=== PATIENT | male | born 1935 | race Caucasian/White ===

== ENCOUNTER 2017-11-20 15:06 | Inpatient (IN) | payer MEDICARE ==
[~2017-11-20] VITALS: Ht 175.3 cm; Wt 75.2 kg
[2017-11-20] VITALS (19 sets, daily range): BP systolic 87–125; BP diastolic 48–87
--- NOTE | ~2017-11-20 | OP ---
PATIENT NAME: HAYDER SMITH MEDICAL RECORD: [id number] :33 LOCATION:D.[id number] ADMISSION DATE:11/20/17 SURGEON: CISCO LAWRENCE MD DATE OF OPERATION: 11/20/2017 SURGEON: Cisco Lawrence MD CO-SURGEON: Harpreet Salazar MD REPORTER ANCHOR: MELE Rob OPERATIONS PERFORMED: 1. Emergent endovascular repair of abdominal aortic aneurysm, ruptured, with [employer] Endurant main body and bilateral iliac extensions via bilateral femoral cutdowns. 2. Aortogram times 4. 3. Bilateral iliac angioplasty. PREOPERATIVE DIAGNOSIS: Ruptured abdominal aortic aneurysm. POSTOPERATIVE DIAGNOSIS: Ruptured abdominal aortic aneurysm. ANESTHESIA: General endotracheal anesthesia. ESTIMATED BLOOD LOSS: 50 cc with Cell Saver. COMPLICATIONS: None. SPECIMENS: None. CONDITION: Critical. DISPOSITION: CV ICU. OPERATIVE FINDINGS: 1. Both femoral arteries were relatively free of disease and normal in size. 2. Pigtail via the left femoral to delineate anatomy. Eventually, some flow was seen in the right ureter, but the right renal artery was never clearly visualized, possibly right kidney only fed by accessory renals. The left renal was the lowest on the CT scan and a landmark for placement of endovascular aortic device. 3. Main body via the right femoral approach. Contralateral gate cannulated from the left with deployment of iliac extension and then an extension placed on the right. 4. Final arteriogram with no endoleak and good positioning of the graft despite severe neck angulation seen. 5. Primary repair of both femoral arteries. INDICATION: Ruptured abdominal aortic aneurysm. DESCRIPTION OF PROCEDURE: The patient was brought emergently to the operating suite. General anesthesia obtained. The patient was prepped and draped. Simultaneously, bilateral femoral cutdowns were performed. Femoral artery was exposed and encircled with vessel loops. A 5000 units of heparin was given. Left femoral artery was cannulated. Guidewire was passed. Sheath was enlarged OPERATIVE REPORT [id number] HAYDER SMITH to 5-Georgian. Pigtail catheter was placed over a wire, which had been placed into the aorta using a guiding catheter; and after the arteriogram, the right femoral was cannulated, sized up to 8-Georgian. Guide catheter was used to place a wire. Then, using the guide catheter in the aorta, a stiff wire was placed. Stiff wire was also placed on the left and the main body placed from the right side deployed. Contralateral gate cannulated from the left and extension deployed. Extension was then deployed on the right. Final angiogram performed after exchange for sheaths and aspirating the outflow through both sheaths. A total of 10,000 of heparin was given as additional 5000 was given prior to deploying the main body. Both femoral arteries were briefly clamped to allow repair of the artery, and after return of flow, good Doppler signal was noted. A 50 mg of protamine was given. Thorough irrigation was undertaken. Both groins were closed in 2 layers with skin clips, and after the case, Doppler posterior tibial pulses were identified. TRANSINT:[id number] Voice Confirmation ID: [id number] DOCUMENT ID: [id number] CISCO LAWRENCE MD at 0716 CC: THIAGO MONROE [id number] DICTATION DATE: 11/20/17 2159 PLASMA TABLE OPERATOR: 11/21/17 0034 ADM IN [facility] [address] [place] [address]
[2017-11-20] MEDS ORDERED: BAYER CHEWABLE81 MG PO (15:18)
[2017-11-20] MEDS ORDERED: HYDROCHLOROTHIA25 MG PO (15:18)
[2017-11-20] MEDS ORDERED: PEPCID40 MG PO (15:19)
[2017-11-20] MEDS ORDERED: ZOCOR20 MG PO (15:19)
[2017-11-20] MEDS ORDERED: FLOMAX0.4 MG PO (15:20)
[2017-11-20] MEDS ORDERED: OMEPRAZOLE20 M1 PO (15:20)
[2017-11-20] MEDS ORDERED: PROBIOTIC1 EAC1 PO (15:20)
[2017-11-20] MEDS ORDERED: SAW PALMETTO450 MG PO (15:21)
[2017-11-20] MEDS ORDERED: OMEGA-3100 MG PO (15:21)
[2017-11-20] MEDS ORDERED: VITAMIN D5000 UNIT PO (15:21)
[2017-11-20] MEDS ORDERED: MIRALAX17 GM PO (15:21)
[2017-11-20] MEDS ORDERED: CEREFOLIN TAB1 TAB PO (15:21)
[2017-11-20] MEDS ORDERED: VITAMIN E400 UNI2 PO (15:21)
[2017-11-20] MEDS ORDERED: POTASSIUM99 M1 PO (15:22)
[2017-11-20] MEDS ORDERED: SYSTANE NIGHTT3.5 GM EACH EYE (15:22)
[2017-11-20] MEDS ORDERED: PRED FORTE5 ML RIGHT EYE (15:22)
[2017-11-20] MEDS ORDERED: MURO-128 OPTH3.5 GM EACH EYE (15:23)
[2017-11-20 15:57] LABS: BASOPHILS 0.1 % (0-2); EOSINOPHILS 0 % (0-7); HEMATOCRIT 34.1 % (42.0-54.0); IMMATURE GRANULOCYTES 0.3 % (0-5); LYMPHOCYTES 4.7 % (15-50); MCH 33.4 pg (26.0-34.0); MCHC 35.2 g/dL (31.0-37.0); MONOCYTES 6.8 % (2-11); NEUTROPHILS 88.1 % (40-80); RBC 3.59 10x6/uL (4.20-6.10); RDW 12.2 % (11.5-14.5); WBC 18.2 10x3/uL (4.8-10.8)
[2017-11-20 16:02] LABS: PLATELET COUNT 206 10x3/uL (130-400)
[2017-11-20 16:17] LABS: ALBUMIN 3.2 g/dL (3.4-5.0); BILIRUBIN - TOTAL 0.5 mg/dL (0.2-1.3); CALCIUM 8.9 mg/dL (8.5-10.1); CARBON DIOXIDE 21.8 mmol/L (21.0-32.0); CREATININE - SERUM 2.6 mg/dL (0.6-1.3); POTASSIUM - SERUM 4.8 mmol/L (3.5-5.1); PROTEIN - SERUM 7.1 g/dL (6.4-8.2)
[2017-11-20 16:56] LABS: INR 1.05 (0.85-1.17); PROTIME 13.3 SECONDS (11.6-15.0)
[2017-11-20 17:00] LABS: CKMB 1.5 U/L (0.0-3.6); CREATINE KINASE 63 UL (21-232); PRO BNP 156 pg/mL (0-450); THYROID STIMULATING HORMONE 1.26 uIU/mL (0.36-3.74)
[2017-11-20 17:01] LABS: TROPONIN-I < 0.017 ng/mL (0.000-0.060)
[2017-11-20 23:32] LABS: HEMATOCRIT 27.5 % (42.0-54.0); HEMOGLOBIN 9.9 g/dL (13.5-17.5); MCV 91.7 fL (80.0-100.0); MEAN PLATELET VOLUME 9.8 fL (7.4-10.4); RDW 12.9 % (11.5-14.5); WBC 13.8 10x3/uL (4.8-10.8)
[2017-11-20 23:42] LABS: ANION GAP 11.8 mmol/L (8-16); CALCIUM 7.2 mg/dL (8.5-10.1); CREATININE - SERUM 2.2 mg/dL (0.6-1.3); POTASSIUM - SERUM 4.3 mmol/L (3.5-5.1)
[2017-11-20 23:43] LABS: CARBON DIOXIDE 27.5 mmol/L (21.0-32.0)
[2017-11-21] VITALS (57 sets, daily range): BP systolic 102–144; BP diastolic 48–72; Ht 175.3 cm; Wt 75.2 kg
[2017-11-21 06:33] LABS: BILIRUBIN - TOTAL 0.4 mg/dL (0.2-1.3); CALCIUM 7.1 mg/dL (8.5-10.1)
[2017-11-21 06:53] LABS: ALBUMIN 2.3 g/dL (3.4-5.0); PROTEIN - SERUM 4.9 g/dL (6.4-8.2)
[2017-11-21 14:56] LABS: APPEARANCE CLEAR (CLEAR); BILIRUBIN NEGATIVE (NEGATIVE); COLOR YELLOW (YELLOW); GLUCOSE NEGATIVE (NEGATIVE); KETONE NEGATIVE (NEGATIVE); NITRITE NEGATIVE (NEGATIVE); PROTEIN NEGATIVE (NEGATIVE); UROBILINOGEN NORMAL (NORMAL)
[2017-11-21 14:59] LABS: BACTERIA FEW /hpf (NONE SEEN); EPITHELIAL CELLS 0-5 /hpf (0-5)
[2017-11-22] VITALS (71 sets, daily range): BP systolic 94–157; BP diastolic 41–84
[2017-11-22 06:43] LABS: ALBUMIN 2.4 g/dL (3.4-5.0); ANION GAP 10.1 mmol/L (8-16); BILIRUBIN - TOTAL 0.48 mg/dL (0.2-1.3); CALCIUM 7.3 mg/dL (8.5-10.1); CARBON DIOXIDE 26.7 mmol/L (21.0-32.0); POTASSIUM - SERUM 3.8 mmol/L (3.5-5.1); PROTEIN - SERUM 5.7 g/dL (6.4-8.2)
[2017-11-22 06:44] LABS: CREATININE - SERUM 1.3 mg/dL (0.6-1.3)
[2017-11-23] VITALS (30 sets, daily range): BP systolic 105–153; BP diastolic 44–68
[2017-11-23 06:15] LABS: BASOPHILS 0.2 % (0-2); EOSINOPHILS 0.3 % (0-7); HEMOGLOBIN 8.3 g/dL (13.5-17.5); IMMATURE GRANULOCYTES 0.2 % (0-5); MCH 31.9 pg (26.0-34.0); MCHC 33.2 g/dL (31.0-37.0); MCV 96.2 fL (80.0-100.0); MEAN PLATELET VOLUME 10.1 fL (7.4-10.4); MONOCYTES 11.7 % (2-11); NEUTROPHILS 80.6 % (40-80); PLATELET COUNT 117 10x3/uL (130-400); RDW 13.1 % (11.5-14.5); WBC 12.3 10x3/uL (4.8-10.8)
[2017-11-23 06:42] LABS: ALBUMIN 2.2 g/dL (3.4-5.0); ANION GAP 8.2 mmol/L (8-16); BILIRUBIN - TOTAL 0.54 mg/dL (0.2-1.3); CALCIUM 7.5 mg/dL (8.5-10.1); CARBON DIOXIDE 27.9 mmol/L (21.0-32.0); CREATININE - SERUM 1.1 mg/dL (0.6-1.3); POTASSIUM - SERUM 4.1 mmol/L (3.5-5.1); PROTEIN - SERUM 5.7 g/dL (6.4-8.2)
[2017-11-24] VITALS (23 sets, daily range): BP systolic 116–146; BP diastolic 45–77
[2017-11-24 06:56] LABS: BASOPHILS 0.1 % (0-2); EOSINOPHILS 0.8 % (0-7); HEMATOCRIT 23.5 % (42.0-54.0); HEMOGLOBIN 7.9 g/dL (13.5-17.5); IMMATURE GRANULOCYTES 0.2 % (0-5); LYMPHOCYTES 6.4 % (15-50); MCH 32.5 pg (26.0-34.0); MCHC 33.6 g/dL (31.0-37.0); MCV 96.7 fL (80.0-100.0); MEAN PLATELET VOLUME 9.6 fL (7.4-10.4); MONOCYTES 15.3 % (2-11); NEUTROPHILS 77.2 % (40-80); RBC 2.43 10x6/uL (4.20-6.10); RDW 12.9 % (11.5-14.5); WBC 11.8 10x3/uL (4.8-10.8)
[2017-11-24 06:58] LABS: PLATELET COUNT 151 10x3/uL (130-400)
[2017-11-25] VITALS (24 sets, daily range): BP systolic 110–135; BP diastolic 48–70
[2017-11-25 06:02] LABS: BASOPHILS 0.1 % (0-2); EOSINOPHILS 0.6 % (0-7); HEMOGLOBIN 7.7 g/dL (13.5-17.5); IMMATURE GRANULOCYTES 0.2 % (0-5); LYMPHOCYTES 8.6 % (15-50); MCH 32.4 pg (26.0-34.0); MCHC 33.5 g/dL (31.0-37.0); MCV 96.6 fL (80.0-100.0); MEAN PLATELET VOLUME 9.5 fL (7.4-10.4); MONOCYTES 16.3 % (2-11); NEUTROPHILS 74.2 % (40-80); RBC 2.38 10x6/uL (4.20-6.10); RDW 12.9 % (11.5-14.5); WBC 11.1 10x3/uL (4.8-10.8)
[2017-11-25 06:25] LABS: PLATELET COUNT 189 10x3/uL (130-400)
[2017-11-26] VITALS (24 sets, daily range): BP systolic 101–144; BP diastolic 41–86
[2017-11-26 05:46] LABS: BASOPHILS 0.1 % (0-2); EOSINOPHILS 0.9 % (0-7); HEMATOCRIT 22.3 % (42.0-54.0); IMMATURE GRANULOCYTES 0.5 % (0-5); LYMPHOCYTES 9.4 % (15-50); MCH 32.3 pg (26.0-34.0); MCHC 33.6 g/dL (31.0-37.0); MCV 96.1 fL (80.0-100.0); MEAN PLATELET VOLUME 9.8 fL (7.4-10.4); MONOCYTES 14.5 % (2-11); NEUTROPHILS 74.6 % (40-80); PLATELET COUNT 208 10x3/uL (130-400); RBC 2.32 10x6/uL (4.20-6.10); WBC 10.6 10x3/uL (4.8-10.8)
[2017-11-26 06:12] LABS: HEMOGLOBIN 7.5 g/dL (13.5-17.5)
[2017-11-26 07:14] LABS: ALBUMIN 1.7 g/dL (3.4-5.0); ALKALINE PHOSPHATASE 89 U/L (46-116); ALT (SGPT) 37 U/L (10-68); BILIRUBIN - TOTAL 5.46 mg/dL (0.2-1.3); CALC OSMOLALITY 282 mosm/kg (275-300); CALCIUM 7.4 mg/dL (8.5-10.1); CARBON DIOXIDE 27.8 mmol/L (21.0-32.0); CHLORIDE - SERUM 108 mmol/L (98-107); GLUCOSE 122 mg/dL (74-106); POTASSIUM - SERUM 4.3 mmol/L (3.5-5.1); PROTEIN - SERUM 4.7 g/dL (6.4-8.2); SODIUM 140 mmol/L (136-145); UREA NITROGEN 21 mg/dL (7-18); eGFR NON AFRICAN AMERICAN 76 mL/min (90-120)
[2017-11-26 15:56] LABS: BILIRUBIN - DIRECT 5.66 mg/dL (0.00-0.30); LDH 253 U/L (85-227)
[2017-11-27] VITALS (24 sets, daily range): BP systolic 104–130; BP diastolic 34–63
[2017-11-27 05:10] LABS: BASOPHILS 0.2 % (0-2); EOSINOPHILS 1.1 % (0-7); HEMATOCRIT 22.5 % (42.0-54.0); HEMOGLOBIN 7.6 g/dL (13.5-17.5); IMMATURE GRANULOCYTES 0.4 % (0-5); MCH 32.1 pg (26.0-34.0); MCHC 33.8 g/dL (31.0-37.0); MCV 94.9 fL (80.0-100.0); MEAN PLATELET VOLUME 9.7 fL (7.4-10.4); MONOCYTES 11.6 % (2-11); NEUTROPHILS 76.7 % (40-80); PLATELET COUNT 239 10x3/uL (130-400); RBC 2.37 10x6/uL (4.20-6.10); RDW 13.2 % (11.5-14.5); WBC 10.2 10x3/uL (4.8-10.8)
[2017-11-27 06:11] LABS: ALBUMIN 1.6 g/dL (3.4-5.0); ALKALINE PHOSPHATASE 98 U/L (46-116); BILIRUBIN - TOTAL 7.47 mg/dL (0.2-1.3); CALC OSMOLALITY 282 mosm/kg (275-300); CALCIUM 7.9 mg/dL (8.5-10.1); CHLORIDE - SERUM 107 mmol/L (98-107); GLUCOSE 122 mg/dL (74-106); POTASSIUM - SERUM 4.1 mmol/L (3.5-5.1); PROTEIN - SERUM 5.5 g/dL (6.4-8.2); SODIUM 140 mmol/L (136-145); UREA NITROGEN 20 mg/dL (7-18); eGFR NON AFRICAN AMERICAN 76 mL/min (90-120)
[2017-11-27 06:15] LABS: ALT (SGPT) 69 U/L (10-68)
[2017-11-28] VITALS (23 sets, daily range): BP systolic 97–132; BP diastolic 42–70
[2017-11-28 05:44] LABS: ALBUMIN 1.7 g/dL (3.4-5.0); ANION GAP 8.8 mmol/L (8-16); BILIRUBIN - TOTAL 7.25 mg/dL (0.2-1.3); CARBON DIOXIDE 29.8 mmol/L (21.0-32.0); CREATININE - SERUM 1.1 mg/dL (0.6-1.3); POTASSIUM - SERUM 3.6 mmol/L (3.5-5.1); PROTEIN - SERUM 5.5 g/dL (6.4-8.2)
[2017-11-29] VITALS (24 sets, daily range): BP systolic 101–126; BP diastolic 42–62
[2017-11-29 06:39] LABS: ALBUMIN 1.7 g/dL (3.4-5.0); ALKALINE PHOSPHATASE 113 U/L (46-116); ALT (SGPT) 62 U/L (10-68); BILIRUBIN - TOTAL 6.91 mg/dL (0.2-1.3); CALC OSMOLALITY 281 mosm/kg (275-300); CALCIUM 7.4 mg/dL (8.5-10.1); CARBON DIOXIDE 31.6 mmol/L (21.0-32.0); CHLORIDE - SERUM 104 mmol/L (98-107); GLUCOSE 129 mg/dL (74-106); PHOSPHOROUS 3.1 mg/dL (2.5-4.9); PROTEIN - SERUM 4.9 g/dL (6.4-8.2); SODIUM 138 mmol/L (136-145); UREA NITROGEN 24 mg/dL (7-18); eGFR NON AFRICAN AMERICAN 76 mL/min (90-120)
[2017-11-29 06:40] LABS: POTASSIUM - SERUM 4.2 mmol/L (3.5-5.1)
[2017-11-30] VITALS (24 sets, daily range): BP systolic 98–136; BP diastolic 43–64
[2017-11-30 06:12] LABS: BASOPHILS 0.1 % (0-2); EOSINOPHILS 0.8 % (0-7); HEMATOCRIT 21.8 % (42.0-54.0); IMMATURE GRANULOCYTES 0.8 % (0-5); LYMPHOCYTES 8.6 % (15-50); MCH 31.4 pg (26.0-34.0); MCV 95.2 fL (80.0-100.0); MONOCYTES 11.4 % (2-11); NEUTROPHILS 78.3 % (40-80); RBC 2.29 10x6/uL (4.20-6.10); RDW 14.1 % (11.5-14.5); WBC 12.3 10x3/uL (4.8-10.8)
[2017-11-30 06:18] LABS: HEMOGLOBIN 7.2 g/dL (13.5-17.5); PLATELET COUNT 296 10x3/uL (130-400)
[2017-11-30 06:35] LABS: ALBUMIN 1.5 g/dL (3.4-5.0); ALKALINE PHOSPHATASE 97 U/L (46-116); BILIRUBIN - DIRECT 2.44 mg/dL (0.00-0.30); BILIRUBIN - INDIRECT 2.33 mg/dL (0.00-1.00); BILIRUBIN - TOTAL 4.77 mg/dL (0.2-1.3); CALC OSMOLALITY 269 mosm/kg (275-300); CALCIUM 7.7 mg/dL (8.5-10.1); CHLORIDE - SERUM 105 mmol/L (98-107); CREATININE - SERUM 0.9 mg/dL (0.6-1.3); GLUCOSE 119 mg/dL (74-106); PROTEIN - SERUM 5.4 g/dL (6.4-8.2); SODIUM 133 mmol/L (136-145); UREA NITROGEN 20 mg/dL (7-18); eGFR NON AFRICAN AMERICAN 85 mL/min (90-120)
[2017-11-30 06:37] LABS: ALT (SGPT) 43 U/L (10-68); CARBON DIOXIDE 20.3 mmol/L (21.0-32.0)
[2017-12-01] VITALS (23 sets, daily range): BP systolic 110–139; BP diastolic 46–68
[2017-12-01 07:01] LABS: ALBUMIN 1.6 g/dL (3.4-5.0); ALKALINE PHOSPHATASE 103 U/L (46-116); ALT (SGPT) 39 U/L (10-68); BILIRUBIN - TOTAL 4.16 mg/dL (0.2-1.3); CALC OSMOLALITY 269 mosm/kg (275-300); CALCIUM 7.6 mg/dL (8.5-10.1); CHLORIDE - SERUM 103 mmol/L (98-107); CREATININE - SERUM 0.9 mg/dL (0.6-1.3); GLUCOSE 130 mg/dL (74-106); POTASSIUM - SERUM 4.3 mmol/L (3.5-5.1); PROTEIN - SERUM 5.4 g/dL (6.4-8.2); SODIUM 133 mmol/L (136-145); UREA NITROGEN 19 mg/dL (7-18); eGFR NON AFRICAN AMERICAN 85 mL/min (90-120)
[2017-12-01 07:04] LABS: BASOPHILS 0.2 % (0-2); HEMATOCRIT 21.6 % (42.0-54.0); IMMATURE GRANULOCYTES 0.8 % (0-5); LYMPHOCYTES 8.6 % (15-50); MCH 31.1 pg (26.0-34.0); MCHC 32.4 g/dL (31.0-37.0); MEAN PLATELET VOLUME 10.3 fL (7.4-10.4); MONOCYTES 9.8 % (2-11); NEUTROPHILS 79.6 % (40-80); PLATELET COUNT 293 10x3/uL (130-400); RBC 2.25 10x6/uL (4.20-6.10); RDW 14.3 % (11.5-14.5); WBC 11.8 10x3/uL (4.8-10.8)
[2017-12-01 07:06] LABS: CARBON DIOXIDE 26.1 mmol/L (21.0-32.0)
[2017-12-01 07:31] LABS: BILIRUBIN - DIRECT 2.86 mg/dL (0.00-0.30)
[2017-12-02] VITALS (24 sets, daily range): BP systolic 96–129; BP diastolic 49–84
[2017-12-02 06:21] LABS: BASOPHILS 0.2 % (0-2); HEMATOCRIT 23.6 % (42.0-54.0); HEMOGLOBIN 7.7 g/dL (13.5-17.5); IMMATURE GRANULOCYTES 0.8 % (0-5); LYMPHOCYTES 10.7 % (15-50); MCH 31.6 pg (26.0-34.0); MCHC 32.6 g/dL (31.0-37.0); MCV 96.7 fL (80.0-100.0); MONOCYTES 10.3 % (2-11); PLATELET COUNT 295 10x3/uL (130-400); RBC 2.44 10x6/uL (4.20-6.10); RDW 14.5 % (11.5-14.5); WBC 9.6 10x3/uL (4.8-10.8)
[2017-12-02 06:38] LABS: ALBUMIN 1.7 g/dL (3.4-5.0); ALKALINE PHOSPHATASE 112 U/L (46-116); ALT (SGPT) 45 U/L (10-68); BILIRUBIN - TOTAL 4.07 mg/dL (0.2-1.3); CALC OSMOLALITY 273 mosm/kg (275-300); CALCIUM 7.9 mg/dL (8.5-10.1); CARBON DIOXIDE 26.1 mmol/L (21.0-32.0); CHLORIDE - SERUM 103 mmol/L (98-107); GLUCOSE 105 mg/dL (74-106); POTASSIUM - SERUM 3.9 mmol/L (3.5-5.1); PROTEIN - SERUM 5.7 g/dL (6.4-8.2); SODIUM 136 mmol/L (136-145); UREA NITROGEN 19 mg/dL (7-18); eGFR NON AFRICAN AMERICAN 76 mL/min (90-120)
[2017-12-03] VITALS (18 sets, daily range): BP systolic 109–134; BP diastolic 48–69
[2017-12-03 06:47] LABS: BASOPHILS 0.1 % (0-2); HEMATOCRIT 23.3 % (42.0-54.0); HEMOGLOBIN 7.7 g/dL (13.5-17.5); LYMPHOCYTES 10.7 % (15-50); MCH 32.1 pg (26.0-34.0); MCV 97.1 fL (80.0-100.0); MEAN PLATELET VOLUME 9.9 fL (7.4-10.4); MONOCYTES 11.3 % (2-11); NEUTROPHILS 75.9 % (40-80); PLATELET COUNT 313 10x3/uL (130-400); RDW 14.7 % (11.5-14.5); WBC 8.8 10x3/uL (4.8-10.8)
[2017-12-03 07:05] LABS: ALBUMIN 1.7 g/dL (3.4-5.0); ALKALINE PHOSPHATASE 142 U/L (46-116); BILIRUBIN - DIRECT 1.92 mg/dL (0.00-0.30); BILIRUBIN - TOTAL 2.92 mg/dL (0.2-1.3); CALC OSMOLALITY 273 mosm/kg (275-300); CALCIUM 7.7 mg/dL (8.5-10.1); CHLORIDE - SERUM 105 mmol/L (98-107); GLUCOSE 110 mg/dL (74-106); PROTEIN - SERUM 5.7 g/dL (6.4-8.2); SODIUM 136 mmol/L (136-145); UREA NITROGEN 15 mg/dL (7-18); eGFR NON AFRICAN AMERICAN 76 mL/min (90-120)
[2017-12-03 07:10] LABS: ALT (SGPT) 58 U/L (10-68)
[2017-12-04] VITALS (11 sets, daily range): BP systolic 108–126; BP diastolic 45–69
[2017-12-04] MEDS ORDERED: HEMOCYTE PLUS C1 CAP PO (10:27)
[2017-12-04] MEDS ORDERED: LOPRESSOR25 MG PO (10:28)
[2017-12-04] MEDS ORDERED: COLACE100 MG PO (10:29)
[2017-12-04] MEDS ORDERED: CARAFATE1 G/10 ML PO (10:32)
== END 2017-12-04 12:32 | disposition home or self-care (01) | DRG 268 ==
LOC: D.ER 15:06 → D.CVICU 17:33 → D.EDHOLD 17:33 → D.CVICU 22:19
PROVIDERS: Emergency Medicine; Family Medicine; Internal Medicine Gastroenterology; Thoracic Surgery (Cardiothoracic Vascular Surgery)
PROC: 047D3ZZ Dilation of Left Common Iliac Artery, Percutaneous Approach (ICD-10-PCS; 2017-11-20)
PROC: 047C3ZZ Dilation of Right Common Iliac Artery, Percutaneous Approach (ICD-10-PCS; 2017-11-20)
PROC: 04V03EZ Restriction of Abdominal Aorta with Branched or Fenestrated Intraluminal Device, One or Two Arteries, Percutaneous Approach (ICD-10-PCS; principal; 2017-11-20 18:15)
DX: I71.3 Abdominal aortic aneurysm, ruptured (principal); K66.1 Hemoperitoneum; K56.7 Ileus, unspecified; I10 Essential (primary) hypertension; K21.9 Gastro-esophageal reflux disease without esophagitis; I95.9 Hypotension, unspecified; R63.2 Polyphagia

== ENCOUNTER → 2017-12-19 08:05 | Outpatient (CLI) | payer MEDICARE ==
[2017-11-21 09:35] VITALS: BMI 27.2
[~2017-12-19 08:05] MED LIST: BAYER CHEWABLE81 MG PO; CARAFATE1 G/10 ML PO; CEREFOLIN TAB1 TAB PO; COLACE100 MG PO; FLOMAX0.4 MG PO; HEMOCYTE PLUS C1 CAP PO; HYDROCHLOROTHIA25 MG PO; LOPRESSOR25 MG PO; MIRALAX17 GM PO; MURO-128 OPTH3.5 GM EACH EYE; OMEGA-3100 MG PO; OMEPRAZOLE20 M1 PO; PEPCID40 MG PO; POTASSIUM99 M1 PO; PRED FORTE5 ML RIGHT EYE; PROBIOTIC1 EAC1 PO; SAW PALMETTO450 MG PO; SYSTANE NIGHTT3.5 GM EACH EYE; VITAMIN D5000 UNIT PO; VITAMIN E400 UNI2 PO; ZOCOR20 MG PO
[2017-12-19 09:10] LABS: HEMATOCRIT 34.4 % (42.0-54.0); HEMOGLOBIN 10.9 g/dL (13.5-17.5); MCH 31.9 pg (26.0-34.0); MCHC 31.7 g/dL (31.0-37.0); MCV 100.6 fL (80.0-100.0); MEAN PLATELET VOLUME 10.2 fL (7.4-10.4); RBC 3.42 10x6/uL (4.20-6.10); RDW 15.5 % (11.5-14.5)
[2017-12-19 10:23] LABS: APPEARANCE CLEAR (CLEAR); BILIRUBIN NEGATIVE (NEGATIVE); COLOR YELLOW (YELLOW); GLUCOSE NEGATIVE (NEGATIVE); KETONE NEGATIVE (NEGATIVE); NITRITE NEGATIVE (NEGATIVE); PROTEIN NEGATIVE (NEGATIVE); SPECIFIC GRAVITY 1.015 (1.005-1.020); UROBILINOGEN NORMAL (NORMAL)
[2017-12-19 10:24] LABS: BACTERIA FEW /hpf (NONE SEEN); EPITHELIAL CELLS 0-5 /hpf (0-5); MUCUS <1+ /lpf (NONE SEEN); WHITE CELLS - URINE 0-5 /hpf (0-5)
== END | disposition home or self-care (01) ==
LOC: D.LAB 08:05
PROVIDERS: Thoracic Surgery (Cardiothoracic Vascular Surgery)
DX: D64.9 Anemia, unspecified (principal); R35.0 Frequency of micturition

== ENCOUNTER → 2018-05-14 09:16 | Outpatient (CLI) | payer MEDICARE ==
[2017-11-21 09:35] VITALS: BMI 27.2
== END | disposition home or self-care (01) ==
LOC: D.CT 09:16
PROVIDERS: ATTEND Thoracic Surgery (Cardiothoracic Vascular Surgery)
DX: I71.3 Abdominal aortic aneurysm, ruptured (principal)

== ENCOUNTER → 2018-11-21 07:21 | Outpatient (CLI) | payer MEDICARE ==
[2017-11-21 09:35] VITALS: BMI 27.2
== END | disposition home or self-care (01) ==
LOC: D.CT 07:21
PROVIDERS: ATTEND Thoracic Surgery (Cardiothoracic Vascular Surgery)
DX: I71.3 Abdominal aortic aneurysm, ruptured (principal)

== ENCOUNTER → 2019-01-28 08:20 | Outpatient (CLI) | payer MEDICARE ==
[2017-11-21 09:35] VITALS: BMI 27.2
--- NOTE | ~2019-01-28 | EC ---
PATIENT:HAYDER SMITH DATE OF SERVICE: 01/28/19 SEX: M MEDICAL RECORD: [id number] DATE OF : 33 LOCATION:D[facility] AGE OF PATIENT: 83 ADMISSION DATE: 01/28/19 REFERRING PHYSICIAN: INTERPRETING PHYSICIAN: RAJAN CASANOVA MD ECHOCARDIOGRAM REPORT ECHO CHARGES 4 ECHO COMPLETE Date: 01/28/19 CLINICAL DIAGNOSIS: MITRAL/TRICUSPID/AORTIC REGURG ECHOCARDIOGRAPHIC MEASUREMENTS (adult normal given) AC root (d.<3.7cm) 4.1 cm LV Septum d (<1.2 cm> 1.6 cm Valve Excursion 2.1 cm LV Septum (systole) 1.8 cm Left Atria (s.<4.0cm> 2.8 cm LVPW d(<1.2cm) 1.5 cm RV (d.<2.3cm) 4.1 cm LVPW (sytole) 1.8 cm LV diastole(<5.6CM) 4.0 cm MV E-F(>70mm/sec) cm LV systole 2.2 cm LVOT Diameter 1.9 cm MV exc.(>10mm) 1.0 cm Est.ejection fraction (50-75%) % DOPPLER: LVIT cm/sec A 112.0cm/sec E 72.0 cm/sec LA cm/sec RVSP 25 mmHg LVOT 113 cm/sec AOP1/2T 635 m/s Asc. Ao 171 cm/sec RVOT cm/sec RA cm/sec PA 102 cm/sec AV Gradient Peak 11.72mmHg AV Mean 5.94 mmHg AV Area 2.6 cm MV Gradient Peak 5.51 mmHg MV Mean 1.38 mmHg MV Area cm COMMENTS: Cardiology Nurse: 2 DAYTON DUMAS Courtroom Deputy: 3 Dr. Vinson TAPE# PACS Pericardial Effusion N DATE OF SERVICE: Adequate 2D, Color Flow, Spectral Doppler, and M-mode LVH. LV internal dimension is normal, wall motion is normal. EF is greater than 55%. Aortic valve is sclerotic. There is no evidence of stenosis by Doppler interrogation. There is mild AI by color flow imaging. Left atrium is normal at 3.0 cm. Mitral valve shows prolapse. Trace MR. Right-sided chambers are grossly normal. Trace TR. ECHOCARDIOGRAM REPORT [id number] HAYDER SMITH TRANSINT:[id number] Voice Confirmation ID: [id number] DOCUMENT ID: [id number] RAJAN CASANOVA MD CC: [id number] DICTATION DATE: 02/02/19 142 SPEECH PATHOLOGY ASSISTANT: 02/02/19 175 DEP CLI 01/28/19 [facility] [address] [place] [address]
== END | disposition home or self-care (01) ==
LOC: D.HCCECHO 08:20
PROVIDERS: ATTEND Internal Medicine Interventional Cardiology
DX: I08.8 Other rheumatic multiple valve diseases (principal)

== ENCOUNTER → 2019-12-10 09:07 | Outpatient (CLI) | payer MEDICARE ==
[2017-11-21 09:35] VITALS: BMI 27.2
== END | disposition home or self-care (01) ==
LOC: D.CT 09:07
PROVIDERS: ATTEND Thoracic Surgery (Cardiothoracic Vascular Surgery)
DX: I71.4 Abdominal aortic aneurysm, without rupture (principal)